=== PATIENT | female | born 1960 | race Caucasian/White ===

== ENCOUNTER 2021-02-04 09:17 | Outpatient (REF) | payer OTHER, SELFPAY ==
--- NOTE | ~2021-02-04 | CT_ITS ---
EXAMINATION: CT CHEST SCREENING CLINICAL INFORMATION: Smoking history COMPARISON: Previous chest CT October 2019 TECHNIQUE: Multidetector volumetric CT imaging of the chest is performed without contrast using low dose technique. Additional 2D coronal and sagittal reformatted images and axial 3D maximum intensity projection (MIP) images are generated on the CT workstation. This CT examination was performed using dose optimization techniques as appropriate, variously including the following: *Automated exposure control *Adjustment of mA and/or kV according to patient size (this includes techniques or standardized protocols for targeted exams where dose is matched to indication/reason for exam; i.e. extremities or head) *Use of iterative reconstruction technique DLP: 90 mGy-cm FINDINGS: LUNGS: There is evidence of paraseptal emphysema. There are several new pulmonary nodules. There is a 2 x 4 mm cavitary central right upper lobe nodule axial image 88 series 5. There is a new slightly heterogeneous or semisolid right upper lobe nodule measuring 5 x 8 mm axial image 125 series 5. Part of this appears solid, 5 x 5 mm with peripheral groundglass attenuation. There is a previously identified peripheral right upper lobe nodule axial image 173 series 19 October 2019 exam is no longer seen. Otherwise calcified and noncalcified pulmonary nodules are stable. There is scarring or subsegmental atelectasis in the right middle lobe, lingula and bilateral lower lobes, right greater than left that is unchanged. There is no endobronchial or endotracheal lesion. MEDIASTINUM: There is evidence of atherosclerotic disease. There is mild aortic valve calcification. The thoracic aorta is normal in caliber. There is an esophageal hernia. The mediastinum is otherwise normal. PLEURA: There is no pleural effusion. No pleural mass or thickening. AXILLA: No lymphadenopathy. UPPER ABDOMEN: Unremarkable OSSEOUS STRUCTURES: Unremarkable. CT/CT lung screening IMPRESSION: Emphysema. 2 new right upper lobe nodules, largest measuring 5 x 7 mm. There is a previously identified right upper lobe nodule that is no longer identified. Stable bibasilar atelectasis or scarring. Atherosclerotic disease. Esophageal hernia. ASSESSMENT: Lung-RADS category 3: Probably Benign RECOMMENDATION: Six-month low-dose chest CT follow-up recommended.
== END 2021-02-04 09:18 | disposition home or self-care (01) ==
LOC: HO.CT 09:17
PROVIDERS: PCP Family Medicine; Visit Provider Physician Assistant Medical
DX: Z12.2 Encounter for screening for malignant neoplasm of respiratory organs (principal); Z87.891 Personal history of nicotine dependence
CPT/HCPCS: 71271

== ENCOUNTER 2021-02-09 08:03 | Outpatient (REF) | payer OTHER, SELFPAY ==
[2021-02-09 10:03] LABS: MANUAL DIFF FLAG NO
[2021-02-09 10:07] LABS: Basophils Percent Auto 0.5 % (0-2); Eosinophils Absolute Auto 0.3 X10*3/uL (0.0-0.4); Eosinophils Percent Auto 3.5 % (0-4); Hematocrit 41.2 % (37-47); Hemoglobin 12.8 g/dl (12.0-16.0); Imm Gran Abs Auto 0.04 X10*3/uL (0.00-0.03); Imm Gran Pct Auto 0.5 % (0.0-0.4); Lymphocytes Absolute Auto 2.3 X10*3/uL (1.2-4.9); Lymphocytes Percent Auto 25.7 % (20-40); Mean Corpuscular HGB Conc 31.1 g/dl (31.0-35.0); Mean Corpuscular Hemoglobin 28.2 pg (27.0-33.0); Mean Corpuscular Volume 90.7 fL (80-98); Mean Platelet Volume 10.5 fL (9.4-12.3); Monocytes Absolute Auto 0.7 X10*3/uL (0.1-1.2); Monocytes Percent Auto 8.4 % (2-11); Neutrophils Absolute Auto 5.4 X10*3/uL (2.0-8.3); Neutrophils Percent Auto 61.4 % (45-73); Platelet Count 236 X10*3/uL (160-400); Red Blood Count 4.54 X10*6/uL (4.20-5.50); Red Cell Distribution Width 14.1 % (11.0-16.0); White Blood Count 8.8 X10*3/uL (4.8-10.8)
[2021-02-09 10:36] LABS: Alanine Aminotransferase 27 U/L (0-31); Albumin Level 3.9 g/dL (3.5-5.0); Alkaline Phosphatase 90 U/L (39-117); Anion Gap 14 (12-20); Aspartate Amino Transferase 21 U/L (5-31); Bilirubin Total 0.4 mg/dL (0.0-1.0); Blood Urea Nitrogen 12 mg/dL (9-16); Calcium 9.5 mg/dL (8.4-10.2); Carbon Dioxide 27 mmol/L (22-29); Chloride 104 mmol/L (96-108); Estimated Glomerular Filt Rate > 60; Glucose Fasting 103 mg/dL (60-99); Potassium 4.6 mmol/L (3.3-5.1); Sodium 140 mmol/L (135-145); Total Protein 6.8 g/dL (6.5-8.0)
[2021-02-09 11:05] LABS: Free T4 (Free Thyroxine) 0.96 ng/dL (0.71-1.85); Thyroid Stimulating Hormone 2.24 uIU/mL (0.32-4.0)
== END 2021-02-09 08:04 | disposition home or self-care (01) ==
LOC: HO.10HDL 08:03
PROVIDERS: Absent Provider Hospitalist; Visit Provider Family Medicine
DX: R06.02 Shortness of breath (principal); R00.0 Tachycardia, unspecified; R19.7 Diarrhea, unspecified; I10 Essential (primary) hypertension
CPT/HCPCS: 36415; 80053; 82378; 84439; 84443; 85025

== ENCOUNTER → 2021-02-17 13:49 | Outpatient (BNVA) | payer OTHER, SELFPAY | PROVIDERS: PCP Family Medicine; Visit Provider Hospitalist | DX: J41.8 Mixed simple and mucopurulent chronic bronchitis (principal); J96.11 Chronic respiratory failure with hypoxia; R91.8 Other nonspecific abnormal finding of lung field | CPT/HCPCS: 99212 ==

== ENCOUNTER 2021-03-15 08:38 | Outpatient (REF) | payer OTHER, SELFPAY ==
--- NOTE | 2021-03-15 13:09 | PFT_ITS ---
FLOWS: FEV1 of 49% of predicted at 1.19 L. FVC 73% of predicted at 2.29 L. FEV1 to FVC ratio of 0.52. No bronchodilator response. LUNG VOLUMES: Total lung capacity 103% of predicted at 5.05 L. Residual volume 141% of predicted at 2.33 L. Slow vital capacity 76% of predicted at 2.22 L. Expiratory reserve volume 45% of predicted at 0.35 L. Diffusion capacity is moderately decreased. In comparison to pulmonary function test from August of 2019, FEV1, FVC, and diffusion capacity have been without significant changes; total lung capacity has increased by 0.98 L; residual volume has increased by 1.07 L. IMPRESSION: Severe obstructive ventilatory defect with no bronchodilator response. Increased residual volume suggests air trapping. Decreased expiratory reserve volume suggests extrathoracic restriction likely secondary to abdominal obesity. Decreased diffusion capacity suggests emphysema. MD ABIGAIL Ross/MODL / [id number]
== END 2021-03-15 08:39 | disposition home or self-care (01) ==
LOC: HO.RESP 08:38
PROVIDERS: PCP Family Medicine; Visit Provider Hospitalist
DX: J44.9 Chronic obstructive pulmonary disease, unspecified (principal)
CPT/HCPCS: 94060; 94727; 94729

== ENCOUNTER → 2021-04-04 08:55 | Outpatient (BNVA) | payer OTHER, SELFPAY | PROVIDERS: PCP Family Medicine; Visit Provider Hospitalist | DX: R91.8 Other nonspecific abnormal finding of lung field (principal); J96.11 Chronic respiratory failure with hypoxia; J41.8 Mixed simple and mucopurulent chronic bronchitis; M79.89 Other specified soft tissue disorders | CPT/HCPCS: 99212 ==

== ENCOUNTER 2021-04-28 11:31 | Outpatient (REF) | payer OTHER, SELFPAY ==
[2021-04-28 13:36] LABS: Basophils Percent Auto 0.3 % (0-2); Eosinophils Absolute Auto 0.3 X10*3/uL (0.0-0.4); Eosinophils Percent Auto 2.5 % (0-4); Hematocrit 42.8 % (37-47); Hemoglobin 13.6 g/dl (12.0-16.0); Imm Gran Abs Auto 0.06 X10*3/uL (0.00-0.03); Imm Gran Pct Auto 0.6 % (0.0-0.4); Lymphocytes Absolute Auto 2.5 X10*3/uL (1.2-4.9); Lymphocytes Percent Auto 24.5 % (20-40); MANUAL DIFF FLAG NO; Mean Corpuscular HGB Conc 31.8 g/dl (31.0-35.0); Mean Corpuscular Volume 88.2 fL (80-98); Monocytes Absolute Auto 0.7 X10*3/uL (0.1-1.2); Monocytes Percent Auto 7.2 % (2-11); Neutrophils Absolute Auto 6.6 X10*3/uL (2.0-8.3); Neutrophils Percent Auto 64.9 % (45-73); Platelet Count 277 X10*3/uL (160-400); Red Blood Count 4.85 X10*6/uL (4.20-5.50); Red Cell Distribution Width 15.9 % (11.0-16.0); White Blood Count 10.2 X10*3/uL (4.8-10.8)
[2021-04-28 13:57] LABS: Anion Gap 13 (12-20); Blood Urea Nitrogen 8 mg/dL (9-16); Calcium 9.6 mg/dL (8.4-10.2); Carbon Dioxide 27 mmol/L (22-29); Chloride 105 mmol/L (96-108); Estimated Glomerular Filt Rate > 60; Glucose Random 80 mg/dL (60-115); Potassium 4.1 mmol/L (3.3-5.1); Sodium 141 mmol/L (135-145)
[2021-04-28 14:01] LABS: B Type Natriuretic Peptide < 10 pg/mL (<100)
[2021-04-30 15:21] LABS: Gliadin Deamidated IgA Ab 6 Units; Gliadin Deamidated IgG Ab 2 Units
[2021-05-02 12:21] LABS: Transglutaminase IgA 1 U/mL
== END 2021-04-28 11:32 | disposition home or self-care (01) ==
LOC: HO.10HDL 11:31
PROVIDERS: Hospitalist; Visit Provider Internal Medicine
DX: J41.8 Mixed simple and mucopurulent chronic bronchitis (principal); J96.11 Chronic respiratory failure with hypoxia; R19.4 Change in bowel habit; R19.7 Diarrhea, unspecified
CPT/HCPCS: 36415; 80048; 83516; 83880; 85025

== ENCOUNTER → 2021-05-10 10:44 | Outpatient (BNVA) | payer OTHER, SELFPAY | PROVIDERS: PCP Family Medicine; Visit Provider Surgery Vascular Surgery ==

== ENCOUNTER → 2022-01-06 12:47 | Outpatient (BNVA) | payer OTHER, SELFPAY | PROVIDERS: PCP Family Medicine; Visit Provider Hospitalist | DX: J41.8 Mixed simple and mucopurulent chronic bronchitis (principal); J96.11 Chronic respiratory failure with hypoxia; R91.8 Other nonspecific abnormal finding of lung field; M79.89 Other specified soft tissue disorders | CPT/HCPCS: 99212 ==

== ENCOUNTER 2022-03-22 07:33 | Outpatient (REF) | payer OTHER, SELFPAY ==
[2022-03-22 08:02] LABS: MANUAL DIFF FLAG NO
[2022-03-22 08:35] LABS: Basophils Percent Auto 0.3 % (0-2); Eosinophils Absolute Auto 0.3 X10*3/uL (0.0-0.4); Eosinophils Percent Auto 3.6 % (0-4); Hematocrit 40.4 % (37.0-47.0); Hemoglobin 12.5 g/dl (12.0-16.0); Imm Gran Abs Auto 0.04 X10*3/uL (0.00-0.03); Imm Gran Pct Auto 0.5 % (0.0-0.4); Lymphocytes Percent Auto 22.8 % (20-40); Mean Corpuscular HGB Conc 30.9 g/dl (31.0-35.0); Mean Corpuscular Hemoglobin 26.3 pg (27.0-33.0); Mean Corpuscular Volume 84.9 fL (80.0-98.0); Mean Platelet Volume 10.4 fL (9.4-12.3); Monocytes Absolute Auto 0.8 X10*3/uL (0.1-1.2); Monocytes Percent Auto 9.4 % (2-11); Neutrophils Absolute Auto 5.5 x10*3/uL (2.0-8.3); Neutrophils Percent Auto 63.4 % (45-73); Platelet Count 273 X10*3/uL (160-400); Red Blood Count 4.76 X10*6/uL (4.20-5.50); Red Cell Distribution Width 15.9 % (11.0-16.0); White Blood Count 8.6 X10*3/uL (4.8-10.8)
[2022-03-22 08:53] LABS: Alanine Aminotransferase 17 U/L (0-31); Anion Gap 14 (12-20); Aspartate Amino Transferase 15 U/L (5-31); Blood Urea Nitrogen 11 mg/dL (9-16); Calcium 9.4 mg/dL (8.4-10.2); Carbon Dioxide 29 mmol/L (22-29); Chloride 102 mmol/L (96-108); Estimated Glomerular Filt Rate > 60; Glucose Random 102 mg/dL (60-115); Potassium 4.2 mmol/L (3.3-5.1); Sodium 141 mmol/L (135-145)
[2022-03-22 09:22] LABS: Erythrocyte Sedimentation Rate 23 MM/HR (0-20)
[2022-03-23 00:54] LABS: Theophylline 8.9 MG/L ((10-20))
== END 2022-03-22 07:34 | disposition home or self-care (01) ==
LOC: HO.LAB 07:33
PROVIDERS: Hospitalist; PCP Family Medicine; Visit Provider Family Medicine
DX: J41.8 Mixed simple and mucopurulent chronic bronchitis (principal); R06.02 Shortness of breath; R60.0 Localized edema; R53.83 Other fatigue
CPT/HCPCS: 36415; 80048; 80198; 84450; 84460; 85025; 85652

== ENCOUNTER → 2022-04-03 12:49 | Outpatient (BNVA) | payer OTHER, SELFPAY | PROVIDERS: PCP Internal Medicine; Visit Provider Hospitalist | DX: Z01.811 Encounter for preprocedural respiratory examination (principal); R91.8 Other nonspecific abnormal finding of lung field; J96.11 Chronic respiratory failure with hypoxia; J41.8 Mixed simple and mucopurulent chronic bronchitis; M79.89 Other specified soft tissue disorders; Z79.899 Other long term (current) drug therapy | CPT/HCPCS: 99212 ==

== ENCOUNTER 2022-04-26 10:20 | Outpatient (REF) | payer OTHER, SELFPAY ==
--- NOTE | ~2022-04-26 | CT_ITS ---
EXAMINATION: CT CHEST WITHOUT CONTRAST CLINICAL INFORMATION: Follow-up pulmonary nodules. COMPARISON: None TECHNIQUE: Multidetector volumetric CT imaging of the chest was done. Axial MIP volume rendering provided. Sagittal and coronal reformatted images were obtained. This CT examination was performed using dose optimization techniques as appropriate, variously including the following: *Automated exposure control. *Adjustment of mA and/or kV according to patient size (this includes techniques or standardized protocols for targeted exams where dose is matched to indication/reason for exam; i.e. extremities or head). *Use of iterative reconstruction technique. DLP: 271 mGy-cm FINDINGS: DEPILATORY PAINTER: Well inflated lungs. LUNGS: There is some centrilobular emphysema in upper lobes and paraseptal emphysema in the rest of the lungs. There are calcified pulmonary nodules, the largest in the right upper lobe measuring 2 mm, axial image 73/9, 3 mm nodule right upper lobe, axial image 110/9, few scattered 3 mm pulmonary nodules in the left upper lobe, axial image 179/9, 2 mm nodule in the left upper lobe, axial image 189/9, 191/9. Large calcified 5 mm nodule in the right lower lobe, axial image 262/9. A 3 mm right upper lobe lesion appears like cavity image 76/9 is stable. No new nodules are seen. There is no acute consolidation. Atelectatic changes right lower lobe, lingula and left lower lobe. There is mild thickening of right major fissure. MEDIASTINUM: The thyroid lobes are symmetric and normal. The central trachea and the bronchi widely patent. Heart size and the great vessels are normal caliber. There is a small to moderate-sized hiatal hernia. No abnormal-sized mediastinal or hilar lymph nodes seen. PLEURA: There is no pleural effusion. No pleural mass or thickening. AXILLA: Small shotty lymph nodes in bilateral axilla. UPPER ABDOMEN: Visualized liver, spleen, pancreas and bilateral adrenal glands are unremarkable. OSSEOUS STRUCTURES: No lytic or sclerotic process. CT/CT chest wo con IMPRESSION: Stable pulmonary nodules including 3 mm cavitary lesion in the right upper lobe previously measured 5 x 7 mm. ASSESSMENT: Lung RADS: Category 2: Benign. RECOMMENDATION: Low-dose annual CT chest. Fleischner guidelines were followed.
== END 2022-04-26 10:21 | disposition home or self-care (01) ==
LOC: HO.CT 10:20
PROVIDERS: PCP Family Medicine; Visit Provider Hospitalist
DX: R91.8 Other nonspecific abnormal finding of lung field (principal)
CPT/HCPCS: 71250

== ENCOUNTER 2023-05-17 14:00 | Outpatient (AMB) | payer MEDICARE, MEDICAID, SELFPAY ==
[2023-05-17 14:06] VITALS: PULSE 92; O2SAT 98; BMI 46.9
--- NOTE | 2023-05-17 14:06 | MHC.OFFVIS ---
Intake Vital Signs 05/17/23 14:06 Height 5 ft 3 in Weight 265 lb BMI 46.9 Pulse 92 Pulse Source Pulse Oximeter Pulse Oximetry (%) 98 Oxygen Delivery Method Room Air Comment 2 Liters Oxygen([employer]) Intake Visit Reasons: Shortness of breath follow-up Apartment Rental Agent Required: No Allergies Seasonal Allergies Allergy (Verified 05/17/23 14:10) Unknown HPI HPI Comments History of Present Illness Details The patient is a 63 y/o woman with a history of COPD and hiatal hernia. She developing worsening dyspnea on exertion. She attributes similar symptoms to her increased weight gain. She did follow-up with bariatric surgery. It was recommended that she could have bariatric surgery in also had her hernia repair which should be very helpful in decreasing her respiratory symptoms both from the reflux standpoint also from the morbid obesity standpoint. The patient does use oxygen at nighttime. However she does not use it all the time. The patient therefore went for 6 minutes walk test and she did desaturate down to 86% therefore qualify for oxygen with activity at 2 L. she is already on maximum respiratory therapy. The patient understands that based on her significant obstruction on PFTs in her evidence of hypoxia she has a high risk for perioperative pulmonary complications. I advised her to consider holding off on surgery at this time as her risk is high. Finding alternative to losing weight at this point will be the best option at this time. The patient is agreeable to doing pulmonary rehabilitation and also starting oxygen supplementation with activity. At this point my recommendation is for her to hold off on bariatric surgery. 04/03/2022 the patient is here for pulmonary follow-up visit. She is feeling better finally. She switched over to Anoro it seems to be doing a lot better on the Anoro. I will send her prescription to the pharmacy. She has also lost 12 lb which is excellent. She does try to exercise but is very difficult for her. She is also having hard time with the idea of leaving the house because of the COVID-19 cases. I did provide information about online pulmonary rehabilitation. She will look into it. In the meantime she continues to use the oxygen as needed fascial if her oxygen drops. But lately she has been doing better. She does have issues with anemia. She is going to have a colonoscopy soon. From a pulmonary standpoint she is doing a lot better and the patient is able to proceed with anesthesia and also her colonoscopy at this time. I did review her CT scan of the chest with her that she had back in January 2021 to the lung cancer screening program here at [place]. She did have a new 5 x 7 mm pulmonary nodule. Unfortunately because of the pandemic and the fact that she could not have lay down. Since the patient is doing better she should be able to have her CT scan now. I will go ahead and order CT scan he is something of the size of the nodule. 05/17/2023 the patient is here for pulmonary follow-up visit. The patient is here for follow-up visit. Overall the patient has been doing well. She does have increased dyspnea on exertion but overall mild in severity. She does use her oxygen with good effect. She does get the oxygen through [facility] [place]. She has a hard time with the oxygen tanks are not very long lasting. She does feel her own tanks. The patient does not benefit from a current 7 device trial and starting her on a conserving device in order to have better portability outside of the home. In addition to that she continues with the current respiratory therapy. She had been on theophylline. She has not checked her levels. She had a good response Daliresp before that. However she was having GI symptoms of therefore she decided to stop it. Recently she was found out to have issues with lactose and her GI issues are better. She rather go back on Daliresp this was more helpful for her. Will go ahead and switch her again to Daliresp and she can continue with current respiratory regimen. She has not had a colonoscopy as of yet. The patient is also following closely with lung cancer screening program. She has not had a repeat CT scan as of yet either. She states that she recently changed phone so therefore may be an issue with his phone I did reach out to the lung cancer screening program to make sure that they can reach out to her and schedule her yearly CT scan specially since she had a new nodule noted back in January 2021. [facility] Medical History (Updated 04/03/22 @ 13:35 by Jason Cm MD) Chest discomfort Chronic respiratory failure COPD (chronic obstructive pulmonary disease) Limb swelling Pulmonary nodules Social History (Updated 04/04/21 @ 09:04 by FAITH Loyd) Patient Tobacco Use Status: Former Tobacco user Tobacco use type: Cigarette Years Smoked: 45 years Review of Systems Const Denies night sweats ENT Denies change in voice, Denies lip swelling, Denies mouth pain, Reports nasal congestion, Reports nasal discharge and Denies tongue swelling Card Denies chest pain and Reports dyspnea on exertion Resp Reports cough and Reports dyspnea on exertion GI Denies abdominal pain Musc Denies no additional complaints Neuro Denies Neuro-related abnormal movements Psych Denies no additional complaints Dago/Lymph Denies easy bleeding and Denies lymphadenopathy Aller/Immun Denies lip swelling and Denies tongue swelling Physical Exam Vital Signs: Last Vital Signs Pulse 92 05/17/23 14:06 Pulse Ox 98 05/17/23 14:06 Oxygen Delivery Method Room Air 05/17/23 14:06 BMI result Body Mass Index 46.9 Const General: alert Neck Neck: Yes normal visual inspection, Yes full ROM and Yes no lymphadenopathy Chest Chest palpation & inspection: normal inspection of the chest Resp Auscultation: diminished lung sounds Cardio Rate: regular rate Rhythm: regular rhythm Heart sounds: S1 normal heart sound present and S2 normal heart sound present GI Palpation (GI): Soft to palpation and nontender Auscultation: normal bowel sounds Skin General skin exam: rashes and/or lesions noted Immunizations pneumoc 20-ariela conj-dip cr(PF) Performing Provider: Jason Cm MD Administered by: Jeanna Wiggins LPN on 05/17/23 14:47 Dose Route Admin Location Lot Number Expiration Date N[employer] Medical Office Technologist 0.5 mL IM Left Deltoid [id number] 07/15/24 [id number] [employer] VIS Given Date VIS Provided VIS Publication Date 05/17/23 Single Vaccine 21 Eligibility Eligibility Date Funding Source Not [facility] Eligible 05/17/23 Private Assessment & Plan Assessment & Plan (1) Pulmonary nodules: Code(s): R91.8 - Other nonspecific abnormal finding of lung field (2) Chronic respiratory failure: Code(s): J96.10 - Chronic respiratory failure, unspecified whether with hypoxia or hypercapnia Qualifiers: Respiratory failure complication: hypoxia Qualified Code(s): J96.11 - Chronic respiratory failure with hypoxia (3) COPD (chronic obstructive pulmonary disease): Code(s): J44.9 - Chronic obstructive pulmonary disease, unspecified Qualifiers: COPD type: chronic bronchitis Chronic bronchitis type: mixed simple and mucopurulent Qualified Code(s): J41.8 - Mixed simple and mucopurulent chronic bronchitis (4) Limb swelling: Code(s): M79.89 - Other specified soft tissue disorders (5) Pre-op chest exam: Code(s): Z01.811 - Encounter for preprocedural respiratory examination Plan stop Theophylline start Daliresp 250mcg continue Anoro BOOKER as needed CT chest summer 2022 LDCT pro The patient is doing well from a respiratory status. She is able to consent for both anesthesia and colonoscopy at this time. PFTs in 6 months labs if she goes back on Theophylline F/U 3-4 months Orders: Orders Complete Blood Count Auto Diff 05/17/23 J96.10 - Chronic respiratory failure, unspecified whether with hypoxia or hypercapnia Basic Metabolic Panel 05/17/23 J96.10 - Chronic respiratory failure, unspecified whether with hypoxia or hypercapnia Erythrocyte Sedimentation Rate 05/17/23 J96.10 - Chronic respiratory failure, unspecified whether with hypoxia or hypercapnia Theophylline 05/17/23 J96.10 - Chronic respiratory failure, unspecified whether with hypoxia or hypercapnia PFT pulmonary function test 6 Months J96.10 - Chronic respiratory failure, unspecified whether with hypoxia or hypercapnia Pneumococcal 20 Immunization 05/17/23 J44.9 - Chronic obstructive pulmonary disease, unspecified Medications: New roflumilast (Daliresp) 250 mcg PO DAILY 30 tabs 11RF 30 days J44.9 - Chronic obstructive pulmonary disease, unspecified Discontinued theophylline ER Discontinued Reason: None 300 mg PO Q12H 60 tabs 0RF Coding Level of Care Code Est Pt Level 4 (16674) Diagnoses Pulmonary nodules R91.8 Chronic respiratory failure J96.11 Respiratory failure complication: hypoxia COPD (chronic obstructive pulmonary disease) J41.8 COPD type: chronic bronchitis Chronic bronchitis type: mixed simple and mucopurulent Limb swelling M79.89 Pre-op chest exam Z01.811 Time Spent (min) 19
== END 2023-05-17 14:38 | disposition home or self-care (01) ==
PROVIDERS: PCP Internal Medicine; Visit Provider Hospitalist
DX: R91.8 Other nonspecific abnormal finding of lung field (principal); J96.11 Chronic respiratory failure with hypoxia; J41.8 Mixed simple and mucopurulent chronic bronchitis; M79.89 Other specified soft tissue disorders; Z01.811 Encounter for preprocedural respiratory examination
CPT/HCPCS: 99214

== ENCOUNTER → 2023-05-17 14:00 | Outpatient (BNVA) | payer MEDICARE, MEDICAID, SELFPAY | PROVIDERS: PCP Internal Medicine; Visit Provider Hospitalist | DX: Z23 Encounter for immunization (principal); Z01.811 Encounter for preprocedural respiratory examination; R91.8 Other nonspecific abnormal finding of lung field; J96.11 Chronic respiratory failure with hypoxia; J41.8 Mixed simple and mucopurulent chronic bronchitis; M79.89 Other specified soft tissue disorders | CPT/HCPCS: 90471; 90677; 99212 ==

== ENCOUNTER 2024-07-29 10:19 | Outpatient (AMB) | payer MEDICARE, MEDICAID, SELFPAY ==
[2024-07-29 10:23] VITALS: BP 134/68; PULSE 63; O2SAT 98; BMI 47.8
--- NOTE | 2024-07-29 10:23 | A.OFFVIS_ITS ---
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 She developing worsening dyspnea on exertion. She attributes similar symptoms to her increased weight gain. She did follow-up with bariatric surgery. It was recommended that she could have bariatric surgery in also had her hernia repair which should be very helpful in decreasing her respiratory symptoms both from the reflux standpoint also from the morbid obesity standpoint. The patient does use oxygen at nighttime. However she does not use it all the time. The patient therefore went for 6 minutes walk test and she did desaturate down to 86% therefore qualify for oxygen with activity at 2 L. she is already on maximum respiratory therapy. The patient understands that based on her significant obstruction on PFTs in her evidence of hypoxia she has a high risk for perioperative pulmonary complications. I advised her to consider holding off on surgery at this time as her risk is high. Finding alternative to losing weight at this point will be the best option at this time. The patient is agreeable to doing pulmonary rehabilitation and also starting oxygen supplementation with activity. At this point my recommendation is for her to hold off on bariatric surgery. 04/03/2022 the patient is here for pulmonary follow-up visit. She is feeling better finally. She switched over to Anoro it seems to be doing a lot better on the Anoro. I will send her prescription to the pharmacy. She has also lost 12 lb which is excellent. She does try to exercise but is very difficult for her. She is also having hard time with the idea of leaving the house because of the COVID-19 cases. I did provide information about online pulmonary rehabilitat ion. She will look into it. In the meantime she continues to use the oxygen as needed fascial if her oxygen drops. But lately she has been doing better. She does have issues with anemia. She is going to have a colonoscopy soon. From a pulmonary standpoint she is doing a lot better and the patient is able to proceed with anesthesia and also her colonoscopy at this time. I did review her CT scan of the chest with her that she had back in January 2021 to the lung cancer screening program here at [place]. She did have a new 5 x 7 mm pulmonary nodule. Unfortunately because of the pandemic and the fact that she could not have lay down. Since the patient is doing better she should be able to have her CT scan now. I will go ahead and order CT scan he is something of the size of the nodule. 05/17/2023 the patient is here for pulmonary follow-up visit. The patient is here for follow-up visit. Overall the patient has been doing well. She does have increased dyspnea on exertion but overall mild in severity. She does use her oxygen with good effect. She does get the oxygen through [facility]. She has a hard time with the oxygen tanks are not very long lasting. She does feel her own tanks. The patient does not benefit from a current 7 device trial and starting her on a conserving device in order to have better portability outside of the home. In addition to that she continues with the current respiratory therapy. She had been on theophylline. She has not checked her levels. She had a good response Daliresp before that. However she was having GI symptoms of therefore she decided to stop it. Recently she was found out to have issues with lactose and her GI issues are better. She rather go back on Daliresp this was more helpful for her. Will go ahead and switch her again to Daliresp and she can continue with current respiratory regimen. She has not had a colonoscopy as of yet. The patient is also following closely with lung cancer screening program. She has not had a repeat CT scan as of yet either. She states that she recently changed phone so therefore may be an issue with his phone I did reach out to the lung cancer screening program to make sure that they can reach out to her and schedule her yearly CT scan specially since she had a new nodule noted back in January 2021. 07/29/2024 the patient is here for a pulmonary follow-up visit. Overall she is doing okay. She does complaint of shortness of breath specially at nighttime when she lays flat. [id number] severity. She does have lower extremity edema she does take diuretics. She is not always following closely the low- sodium diet. She does cook her meals. She does have significant lower extremity edema. She will go ahead and increase her diuretic for the next 3 days. She understands that is likely her volume overload does causing it to have increasing shortness of breath. The patient also was participating in the lung cancer screening program. The last CT scan was back in 2021. Then she stopped going for appointments because of the COVID-19 epidemic. At this point she feels more comfortable she will go ahead and restart the program at this time. Will reach out to the lung cancer screening program for her to be rescheduled. In regards to medications she stopped the Daliresp. In addition to that she is having issues with anemia. She had to get a blood transfusion. This is also likely contributing to her dyspnea symptoms. She is going to follow up closely with her providers. She was supposed to undergo a capsule endoscopy but she needs waiting to hear from scheduling. [facility] Medical History (Updated 03/14/24 @ 09:32 by Rosemarie Mckeon PA-C) Personal history of nicotine dependence Chest discomfort Limb swelling Pulmonary nodules Chronic respiratory failure COPD (chronic obstructive pulmonary disease) Social History (Updated 04/04/21 @ 09:04 by FAITH Loyd) Patient Tobacco Use Status: Former Tobacco user Tobacco use type: Cigarette Years Smoked: 45 years Review of Systems Const Denies night sweats ENT Denies change in voice, Denies lip swelling, Denies mouth pain, Reports nasal congestion, Reports nasal discharge and Denies tongue swelling Card Denies chest pain and Reports dyspnea on exertion Resp Reports cough and Reports dyspnea on exertion GI Denies abdominal pain Musc Denies no additional complaints Neuro Denies Neuro-related abnormal movements Psych Denies no additional complaints Dago/Lymph Denies easy bleeding and Denies lymphadenopathy Aller/Immun Denies lip swelling and Denies tongue swelling Physical Exam Vital Signs: Last Vital Signs Pulse 63 07/29/24 10:23 BP 134/68 07/29/24 10:23 Pulse Ox 98 07/29/24 10:23 Oxygen Delivery Method Room Air 07/29/24 10:23 BMI result Body Mass Index 47.8 Const General: alert Neck Neck: Yes normal visual inspection, Yes full ROM and Yes no lymphadenopathy Chest Chest palpation & inspection: normal inspection of the chest Resp Auscultation: diminished lung sounds Cardio Rate: regular rate Rhythm: regular rhythm Heart sounds: S1 normal heart sound present and S2 normal heart sound present GI Palpation (GI): Soft to palpation and nontender Auscultation: normal bowel sounds Skin General skin exam: rashes and/or lesions noted Assessment & Plan Assessment & Plan (1) Pulmonary nodules: Code(s): R91.8 - Other nonspecific abnormal finding of lung field Category: Medical (2) Chronic respiratory failure: Code(s): J96.10 - Chronic respiratory failure, unspecified whether with hypoxia or hypercapnia Category: Medical Qualifiers: Respiratory failure complication: hypoxia Qualified Code(s): J96.11 - Chronic respiratory failure with hypoxia (3) COPD (chronic obstructive pulmonary disease): Code(s): J44.9 - Chronic obstructive pulmonary disease, unspecified Category: Medical Qualifiers: COPD type: chronic bronchitis Chronic bronchitis type: mixed simple and mucopurulent Qualified Code(s): J41.8 - Mixed simple and mucopurulent chronic bronchitis (4) Limb swelling: Code(s): M79.89 - Other specified soft tissue disorders Category: Medical Plan stopped Daliresp continue Anoro BOOKER as needed additional lasix 20mg (40mg) x 3 days continue oxygen 2L with activity and sleep CT chest LDCT F/U 3-4 months Coding Level of Care Code Est Pt Level 4 (10755) Complex EM visit Add On G2211 Diagnoses Pulmonary nodules R91.8 Chronic respiratory failure with hypoxia J96.11 Respiratory failure complication: hypoxia Mixed simple and mucopurulent chronic bronchitis J41.8 COPD type: chronic bronchitis Chronic bronchitis type: mixed simple and mucopurulent Limb swelling M79.89 Time Spent (min) 17
== END 2024-07-29 10:42 | disposition home or self-care (01) ==
PROVIDERS: PCP Internal Medicine; Visit Provider Hospitalist
DX: R91.8 Other nonspecific abnormal finding of lung field (principal); J96.11 Chronic respiratory failure with hypoxia; J41.8 Mixed simple and mucopurulent chronic bronchitis; M79.89 Other specified soft tissue disorders
CPT/HCPCS: 99214; G2211

== ENCOUNTER → 2024-07-29 10:19 | Outpatient (BNVA) | payer MEDICARE, MEDICAID, SELFPAY | PROVIDERS: PCP Internal Medicine; Visit Provider Hospitalist | DX: J96.11 Chronic respiratory failure with hypoxia (principal); J41.8 Mixed simple and mucopurulent chronic bronchitis; R91.8 Other nonspecific abnormal finding of lung field; M79.89 Other specified soft tissue disorders | CPT/HCPCS: 99212 ==

== ENCOUNTER 2025-01-30 10:36 | Outpatient (AMB) | payer MEDICARE, MEDICAID, SELFPAY ==
[2025-01-30 10:42] VITALS: BP 132/88; PULSE 72; O2SAT 97; BMI 49.8
--- NOTE | 2025-01-30 10:42 | A.OFFVIS_ITS ---
Vital Signs 01/30/25 10:42 Height 5 ft 3 in Weight 281 lb 1.43 oz BMI 49.8 BP 132/88 Blood Pressure Location Rt brachial Position Sitting Pulse 72 Pulse Source Pulse Oximeter Pulse Oximetry (%) 97 Oxygen Delivery Method Nasal Cannula Oxygen Flow Rate 2 Intake Visit Reasons: COPD Allergies lactose Allergy (Mild, Verified 01/30/25 10:47) Diarrhea latex Allergy (Mild, Verified 01/30/25 10:47) Rash Seasonal Allergies Allergy (Verified 01/30/25 10:46) Unknown HPI Comments Details: The patient is a 64 y/o woman with a history of COPD and hiatal hernia. She developing worsening dyspnea on exertion. She attributes similar symptoms to her increased weight gain. She did follow-up with bariatric surgery. It was recommended that she could have bariatric surgery in also had her hernia repair which should be very helpful in decreasing her respiratory symptoms both from the reflux standpoint also from the morbid obesity standpoint. The patient does use oxygen at nighttime. However she does not use it all the time. The patient therefore went for 6 minutes walk test and she did desaturate down to 86% therefore qualify for oxygen with activity at 2 L. she is already on maximum respiratory therapy. The patient understands that based on her significant obstruction on PFTs in her evidence of hypoxia she has a high risk for perioperative pulmonary complications. I advised her to consider holding off on surgery at this time as her risk is high. Finding alternative to losing weight at this point will be the best option at this time. The patient is agreeable to doing pulmonary rehabilitation and also starting oxygen supplementation with activity. At this point my recommendation is for her to hold off on bariatric surgery. 04/03/2022 the patient is here for pulmonary follow-up visit. She is feeling better finally. She switched over to Anoro it seems to be doing a lot better on the Anoro. I will send her prescription to the pharmacy. She has also lost 12 lb which is excellent. She does try to exercise but is very difficult for her. She is also having hard time with the idea of leaving the house because of the COVID-19 cases. I did provide information about online pulmonary rehabilitation. She will look into it. In the meantime she continues to use the oxygen as needed fascial if her oxygen drops. But lately she has been doing better. She does have issues with anemia. She is going to have a colonoscopy soon. From a pulmonary standpoint she is doing a lot better and the patient is able to proceed with anesthesia and also her colonoscopy at this time. I did review her CT scan of the chest with her that she had back in January 2021 to the lung cancer screening program here at [facility]. She did have a new 5 x 7 mm pulmonary nodule. Unfortunately because of the pandemic and the fact that she could not have lay down. Since the patient is doing better she should be able to have her CT scan now. I will go ahead and order CT scan he is something of the size of the nodule. 05/17/2023 the patient is here for pulmonary follow-up visit. The patient is here for follow-up visit. Overall the patient has been doing well. She does have increased dyspnea on exertion but overall mild in severity. She does use her oxygen with good effect. She does get the oxygen through [facility]. She has a hard time with the oxygen tanks are not very long lasting. She does feel her own tanks. The patient does not benefit from a current [address] arting her on a conserving device in order to have better portability outside of the home. In addition to that she continues with the current respiratory therapy. She had been on theophylline. She has not checked her levels. She had a good response Daliresp before that. However she was having GI symptoms of therefore she decided to stop it. Recently she was found out to have issues with lactose and her GI issues are better. She rather go back on Daliresp this was more helpful for her. Will go ahead and switch her again to Daliresp and she can continue with current respiratory regimen. She has not had a colonoscopy as of yet. The patient is also following closely with lung cancer screening program. She has not had a repeat CT scan as of yet either. She states that she recently changed phone so therefore may be an issue with his phone I did reach out to the lung cancer screening program to make sure that they can reach out to her and schedule her yearly CT scan specially since she had a new nodule noted back in January 2021. 07/29/2024 the patient is here for a pulmonary follow-up visit. Overall she is doing okay. She does complaint of shortness of breath specially at nighttime when she lays flat. Kzup-pn-ldmchqna severity. She does have lower extremity edema she does take diuretics. She is not always following closely the low- sodium diet. She does cook her meals. She does have significant lower extremity edema. She will go ahead and increase her diuretic for the next 3 days. She understands that is likely her volume overload does causing it to have increasing shortness of breath. The patient also was participating in the lung cancer screening program. The last CT scan was back in 2021. Then she stopped going for appointments because of the COVID-19 epidemic. At this point she feels more comfortable she will go ahead and restart the program at this time. Will reach out to the lung cancer screening program for her to be rescheduled. In regards to medications she stopped the Daliresp. In addition to that she is having issues with anemia. She had to get a blood transfusion. This is also likely contributing to her dyspnea symptoms. She is going to follow up closely with her providers. She was supposed to undergo a capsule endoscopy but she needs waiting to hear from scheduling. 01/30/2025 the patient is here for a pulmonary follow-up visit. Overall the patient is doing okay. She has noticed increased lower extremity edema. Go ahead and request an echocardiogram to make sure she does not have any evidence of cor pulmonale. The patient continues on the Lasix. Will go ahead and increase the Lasix some. She also needs to continue monitoring closely her sodium intake. She also has been using the oxygen with good effect. She still gets short of breath with activity. The inhalers do help. The patient was participating in the lung cancer screening program although for some reason she fell off which I think was because she lost her insurance. Will go ahead and that are back on the program in order for her to get her yearly CAT scans. The patient will continue with current respiratory therapy use her oxygen and work ing on her volume status. She will get a call for the echocardiogram. Will follow-up in 4-6 months. [facility] Medical History (Updated 01/30/25 @ 11:08 by Rosemarie Mckeon PA-C) Personal history of nicotine dependence Chest discomfort Limb swelling Pulmonary nodules Chronic respiratory failure COPD (chronic obstructive pulmonary disease) Social History (Updated 04/04/21 @ 09:04 by FAITH Loyd) Patient Tobacco Use Status: Former Tobacco user Tobacco use type: Cigarette Years Smoked: 45 years Review of Systems Const Denies night sweats ENT Denies change in voice, Denies lip swelling, Denies mouth pain, Reports nasal congestion, Reports nasal discharge and Denies tongue swelling Card Denies chest pain and Reports dyspnea on exertion Resp Reports cough and Reports dyspnea on exertion GI Denies abdominal pain Musc Denies no additional complaints Neuro Denies Neuro-related abnormal movements Psych Denies no additional complaints Dago/Lymph Denies easy bleeding and Denies lymphadenopathy Aller/Immun Denies lip swelling and Denies tongue swelling Physical Exam Vital Signs: Last Vital Signs Pulse 72 01/30/25 10:42 BP 132/88 01/30/25 10:42 Pulse Ox 97 01/30/25 10:42 Oxygen Delivery Method Nasal Cannula 01/30/25 10:42 Oxygen Flow Rate 2 01/30/25 10:42 BMI result Body Mass Index 49.8 Const General: alert Neck Neck: Yes normal visual inspection, Yes full ROM and Yes no lymphadenopathy Chest Chest palpation & inspection: normal inspection of the chest Resp Auscultation: diminished lung sounds Cardio Rate: regular rate Rhythm: regular rhythm Heart sounds: S1 normal heart sound present and S2 normal heart sound present GI Palpation (GI): Soft to palpation and nontender Auscultation: normal bowel sounds Skin General skin exam: rashes and/or lesions noted Assessment & Plan Assessment & Plan (1) Pulmonary nodules: Code(s): R91.8 - Other nonspecific abnormal finding of lung field Category: Medical (2) Chronic respiratory failure: Code(s): J96.10 - Chronic respiratory failure, unspecified whether with hypoxia or hypercapnia Category: Medical Qualifiers: Respiratory failure complication: hypoxia Qualified Code(s): J96.11 - Chronic respiratory failure with hypoxia (3) COPD (chronic obstructive pulmonary disease): Code(s): J44.9 - Chronic obstructive pulmonary disease, unspecified Category: Medical Qualifiers: COPD type: chronic bronchitis Chronic bronchitis type: mixed simple and mucopurulent Qualified Code(s): J41.8 - Mixed simple and mucopurulent chronic bronchitis (4) Limb swelling: Code(s): M79.89 - Other specified soft tissue disorders Category: Medical Plan continue Anoro BOOKER as needed continue oxygen 2L with activity and sleep diuresis as tolerated ECHO CT chest LDCT F/U 3-4 months Orders: Orders CA echo transthoracic complete 01/30/25 I27.20 - Pulmonary hypertension, unspecified Coding Level of Care Code Est Pt Level 4 (07607) Complex EM visit Add On G2211 Diagnoses Pulmonary nodules R91.8 Chronic respiratory failure with hypoxia J96.11 Respiratory failure complication: hypoxia Mixed simple and mucopurulent chronic bronchitis J41.8 COPD type: chronic bronchitis Chronic bronchitis type: mixed simple and mucopurulent Limb swelling M79.89 Time Spent (min) 17
--- OUTSIDE RECORDS SUMMARY | 2025-01-30 11:38 | XMS_ITS | Patient Health Record ---
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 Name Role Phone Juan Carlos CHUN, Jose G Primary Care Provider Elder Blanchard [phone] Allergies Allergen (clinical drug ingredient) Drug/Non Drug Allergy documented on EMR Reaction Allergy Type Onset Date Status Latex Gloves Unknown Drug Allergy Acti ve DuoNeb Unknown Drug Allergy Active seasonal (uncoded) Unknown Allergy A ctive sun (uncoded) Unknown Allergy Active Reason For Referral No Information Medications Medication SIG (Take, Route, Frequency, Duration) Notes Start Date End Date Status Albuterol Sulfate HFA Active Toprol XL 25mg Activ e Losartan Potassium 25 MG 1/2 tablet Oral ly Once a day Active Furosemide 20 MG 1 tablet Orally Once a day for 30 day(s) Active Daliresp 250 MCG 2 tablets Orally Onc e a day for 30 day(s) Active Incruse Ellipta 62.5 MCG/INH 1 puff Inhalation Once a day Active Multivitamin Adult A ctive Iron Active Breo Ellipta Active Immunizations Vaccine Route Administration Date Status Comme nts Influenza Unknown 07/15/2020 Administered Social History Tobacco Use: Social History Observation Description Date Details (start date - stop date) Former Smoker NA - NA Tobacco Use/Smoking Question Answer Notes Patient is a former smoker How long has it been since you last smoked? 1-5 years Alcohol Screen Question Answer Notes Did you have a drink contain ing alcohol in the past year? Yes How often did you have a dri nk containing alcohol in the past year? 4 or more times a week (4 points) How many drinks did you have on a typical day when you were drinking in the past year? 1 or 2 drinks (0 point) How often did you have 6 or more drinks on one occasion in the past year? Never (0 point) Points 4 Interpretation Positive Section Notes: Smoker 1/2 ppd; no sig alcoh ol Stopped smoking in 2018; 2 g lasses of wine QD Problems Problem Type SNOMED Code ICD Code Onset Dates Problem Status W/U Status Risk Notes Problem 143121242 Encounter for screening for malignant neoplasm of colon (Z12.11) Active confirmed Problem 371511843 Change in bowel habits (R19.4) Active confirmed Problem 922247454 Hx of adenomatous colonic polyps (Z86.010) Active confirmed Problem 66874807 Diarrhea, unspecified type (R19.7) Active confirmed Plan Of Treatment Pending Test Test Name Order Date CELIAC PANEL #10 04/28/2021 Future Test Test Name Order Date COLONOSCOPY 04/28/2021 Insurance Providers Payer Name Payer Address Payer Phone Subscriber Number Group Number Insured Name Patient Relationship to Insured Coverage Start Date Coverage End Date [facility] [address] [address] [place], [place] [id number] CHERY COVARRUBIAS Self - patient is the insured [facility] [address] [place] [address] [id number] CHERY COVARRUBIAS Self - patient is the insured Medical (General) History Medical History History ICD Code GERD--told of a HH on UGI--never had an EGD HTN Denies MO,DM,CVA,renal disease LE edema Iron deficiency anemia in the past--norm al CBC in 01/2021 COPD--wears oxygen for exertion and slee p Colonoscopy mere [place] with Dr. Wilson in 2014 with removal of a polyp Surgical History Surgery Date(Month/Year) Right knee arthroscopy
--- OUTSIDE RECORDS SUMMARY | 2025-01-30 11:38 | XMS_ITS | Clinical Summary ---
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 Assembler Name Role Phone Julissa Rangel MD Primary Care Provider [phone] Surgical History Surgery Date Site/Laterality Comments KNEE SURGERY PROCEDURE: HISTORICAL KNEE SURGERY Medical History Medical History Date Comments Anemia 12/04/2016 DX:Anemia Chronic obstructive pulmonar y disease (CMS/HCC V24, CMS/HCC V28) 05/04/2017 DX:Chronic obstructive pulm onary disease (HCC) Gastroesophageal reflux disease 12/04/2016 DX:Gastroesophageal reflux disease Hiatal hernia 12/04/2016 DX:Hiatal hernia Hypercholesterolemia 12/04/2016 DX:Hypercho lesterolemia Hypertension 12/04/2016 DX:Hypertension Mononucleosis syndrome 12/04/2016 DX:Mononu cleosis syndrome Social History Tobacco Use Types Packs/Day Years Used Date Smoking Tobacco: Former Cigarettes Q uit: 07/15/2018 Smokeless Tobacco: Never Alcohol Use Standard Drinks/Week Comments Yes 0 (1 standard drink = 0.6 oz pur e alcohol) Comments Unknown Sex and Gender Information Value Date Recorded Sex Assigned at Not on file Legal Sex Female 9:08 PM EST Gender Identity Not on file Sexual Orientation Not on file Obstetrics History Plan of Treatment Health Maintenance Due Date Last Done Comments DTaP,Tdap,and Td Vaccines (1 - Tdap) 1977 Pneumococcal Vaccine: 50+ Ye ars (1 of 1 - PCV) 2008 Zoster Vaccines (1 of 2) 2008 Breast Cancer Screening 01/08/2021 01/08/2019 Colorectal Cancer Screening: Colonoscopy 09/24/2022 Depression Screening 09/24/2022 Hepatitis C Screening 09/24/2022 Osteoporosis Screening (Bone Density Screening) 09/24/2022 Social Influencers of Health Screening 09/24/2022 Falls Risk Assessment 2023 COVID-19 Vaccine (2023-2 5 season) 2024 Influenza Vaccine (Season Ended) 2025 RSV Immunization Adult Patie nts (1 - 1-dose 75+ series) 2033 HIB Vaccines Aged Out No longer eligi ble based on patient's age to complete this topic HPV Vaccines Aged Out No longer eligi ble based on patient's age to complete this topic Hepatitis A Vaccines Aged Out No long er eligible based on patient's age to complete this topic Hepatitis B Vaccines Aged Out No long er eligible based on patient's age to complete this topic IPV Vaccines Aged Out No longer eligi ble based on patient's age to complete this topic MMR Vaccines Aged Out No longer eligi ble based on patient's age to complete this topic Meningococcal ACWY Vaccine Aged Out N o longer eligible based on patient's age to complete this topic Meningococcal B Vaccine Aged Out No l onger eligible based on patient's age to complete this topic RSV Immunization Patients Un allyson 20 months Aged Out No longer eligible b ased on patient's age to complete this topic Varicella Vaccines Aged Out No longer eligible based on patient's age to complete this topic Procedures Procedure Name Priority Date/Time Associated Diagnosis Comments [facility] SCREENING DIGITAL Routine 01/08/2019 4:53 PM EDT Encounter for screening mammogram for malignant neoplasm of breast from Last 3 Months or Most Recently Relevant to Health Maintenance Results * [facility] SCREENING DIGITAL (01/08/2019 4:53 PM EDT) Anatomical Region Laterality Modality Mammography 01/08/2019 11:0 7 AM EDT Narrative 01/08/2019 4:53 PM EDT [facility] Diagnostic Imaging Department [address] [place] [address] Patient: ??SUMMER PEREZ ?/Age/Sex: 1960 - 58 - F Unit#: ??[id number] ? Location/Status: ??SPDIMAM/REG CLI ? Mnemonic/Ordering Site: ??DIGSC/SPMAM Ordering Physician: ??JULISSA RANGEL MD Maximiliano Screening Digital - 01/08/19 - 1139 History: Bilateral breast cancer screening. Technique: Bilateral digital mammography. Conventional CC and MLO projections with tomosynthesis MLO views and computer-aided detection Comparison: [facility] most recently 07/18/2017, 10/14/2015 and 08/28/2012. Findings: Breast tissue is mostly ??fatty replaced (category A density). ??There is no suspicious group of microcalcification, no suspicious mass, architectural distortion or suspicious change in breast tissue density. Impression: ??No evidence of malignancy. BIRADS category 1, negative examination, 3341F 59925, , [address] Note: Patient information entered ??into a reminder system with a target due date for the next mammogram; PQRI II 0729F Dictating Physician: ??BRODY ZHAO MD Electronically Signed by: ??BRODY ZHAO MD Dic Date/Time: ??01/08/191652 Sign date/Time: ??01/08/191652 Procedure Note Brody Zhao MD - 10/04/2022 [facility] Diagnostic Imaging Department [address] [place] [address] Patient: SUMMRE PEREZ /Age/Sex: 1960 - 58 - F Unit#: [id number] Location/Status: SPDIMAM/REG CLI Mnemonic/Ordering Site: [facility] Ordering Physician: JULISSA RANGEL MD Maximiliano Screening Digital - 01/08/19 - 1139 History: Bilateral breast cancer screening. Technique: Bilateral digital mammography. Conventional CC and MLOprojections with tomosynthesis MLO views and computer-aided detection Comparison: [facility] most recently 07/18/2017, 10/14/2015 and 08/28/2012. Findings: Breast tissue is mostly fatty replaced (category A density). There isno suspicious group of microcalcification, no suspicious mass,architectural distortion or suspicious change in breast tissue density. Impression: No evidence of malignancy. BIRADS category 1, negative examination, 3341F [address]496, , [address] Note: Patient information entered into a reminder system with a targetdue date for the next mammogram; PQRI II 7019F Dictating Physician: BRODY ZHAO MD Electronically Signed by: BRODY ZHAO MD Dic Date/Time: 01/08/191652 Sign date/Time: 01/08/191652 us Julissa Rangel MD IMG BI PROCEDURES Final Result from Last 3 Months or Most Recently Relevant to Health Maintenance Care Teams Lay Ups Assembler Relationship Specialty Start Date End Date Julissa Rangel MD [address] [place] [address] [place] [address] PCP - General Internal Medicine 08/23/17
== END 2025-01-30 11:08 | disposition home or self-care (01) ==
LOC: HO.HPS 10:36
PROVIDERS: PCP Internal Medicine; Visit Provider Hospitalist
DX: R91.8 Other nonspecific abnormal finding of lung field (principal); J96.11 Chronic respiratory failure with hypoxia; J41.8 Mixed simple and mucopurulent chronic bronchitis; M79.89 Other specified soft tissue disorders
CPT/HCPCS: 99214; G2211

== ENCOUNTER → 2025-01-30 10:36 | Outpatient (BNVA) | payer MEDICARE, MEDICAID, SELFPAY | PROVIDERS: PCP Internal Medicine; Visit Provider Hospitalist | DX: R91.8 Other nonspecific abnormal finding of lung field (principal); J96.11 Chronic respiratory failure with hypoxia; J41.8 Mixed simple and mucopurulent chronic bronchitis; M79.89 Other specified soft tissue disorders | CPT/HCPCS: 99212 ==

== ENCOUNTER 2025-03-04 11:59 | Outpatient (REF) | payer MEDICARE, MEDICAID, SELFPAY ==
--- NOTE | ~2025-03-04 | CT_ITS ---
CLINICAL HISTORY: Z87.891 - Personal history of nicotine dependence CT lung cancer screening (LDCT) Comparison: CT/SR - CT CHEST WO CON - 04/26/22 10:[address]/REG - CT LUNG SCREENING - 02/04/21 09:40 EDT Technique: Axial CT images of the chest using low-dose technique. Referring provider counseled the patient on shared decision-making for LDCT screening. Additional counseling was provided on smoking cessation. Effective radiation dose total: DLP 65.7 mGycm, CTDIvol 2.1 mGy. Findings: Lung: Moderate emphysema. Calcified granulomas. No suspicious pulmonary nodule. Coronary artery calcifications: None Limited upper abdomen: Moderate size of the hiatal hernia. Other: None Impression: LungRADS 2 - Benign Appearance: Continue annual screening with low dose Chest CT in 12 months. ##L2## Category 1: Normal; continue annual screening Category 2: Benign appearance or behavior, continue annual screening Category 3: Probably benign, [address] recommended Category 4A: Suspicious, [address] recommended; may consider PET/CT Category 4B: Suspicious, Additional diagnostics and/or tissue sampling recommended Category 4X: Suspicious, Additional diagnostics and/or tissue sampling recommended Category 0: Recalls (incomplete screen due to Incomplete coverage, Noise, Respiratory motion, Expiration, Obscured by acute abnormality) This document has been electronically signed by: Lucy Solares MD on 03/04/2025 15:29:53
--- NOTE | 2025-03-04 12:27 | CA_ITS ---
Transthoracic Echocardiogram Patient (Last, First, Middle): Summer Perez, Gender: Female Date of : 1960 Age: 64 Procedure Date: 03/04/2025 Procedure Type: Transthoracic Echocardiogram Location: OP Height: 160.02 cm Weight: 124.74 kg BSA: 2.21 m2 Heart Rate: 78 bpm BP: 140 / 65 mmHg Retouching Operator: SB/RC Referring MD: Jason Cm MD Brush Material Preparer: Everton Cheatham MD Symptoms: I27.20 - Pulmonary hypertension, unspecified Study Quality: Adequate w contrast ECG Rhythm: Sinus Conclusions: - 1. Hyperdynamic LV EF of greater than 70% with suggestive of elevated filling pressures 2. Calcific aortic and mitral valve changes noted with normal cardiac valvular Dopplers 3. Normal measured RV systolic pressure 4. No gross pericardial effusion Findings Procedure Information Contrast agent, definity, is being given per protocol without apparent complications. The quality of the study was technically difficult. The study quality is limited by patients body habitus and lung artifact. Left Ventricle Normal left ventricular cavity size. There is normal left ventricular wall thickness. The left ventricular systolic function is hyperdynamic. The visually estimated ejection fraction is >70%. Spectral Doppler is indicative of an impaired relaxation filling pattern. Elevated filling pressures. E/E prime ratio is >15, consistent with elevated filling pressures. Right Ventricle The right ventricle was not well visualized. There is normal right ventricular systolic function. Atria The left atrium is normal in size. Interatrial shunt cannot be excluded. The right atrium was not well visualized. Aortic Valve The aortic valve was not well visualized. There is moderate calcification of the aortic valve. There is no aortic valve stenosis. There is no aortic valve regurgitation. Mitral Valve The mitral valve was not well visualized. There is mild anterior mitral leaflet thickening. There is mild mitral annular calcification. There is trace mitral valve regurgitation. There is no mitral valve stenosis. Pulmonic Valve The pulmonic valve was not well visualized. Tricuspid Valve Likely normal tricuspid valve structure and function. There is mild tricuspid valve regurgitation. The right ventricular systolic pressure is normal. The right ventricular systolic pressure is 33 mmHg. Normal right atrial pressure. There is no evidence of pulmonary hypertension. Great Vessels The aorta was not well visualized. The pulmonary artery was not well visualized. Venous The inferior vena cava is normal in size and collapses greater than 50% with inspiration. Pericardium/Pleural There is no evidence of pericardial effusion. Prior Study Comparison no previous study in the last 5 years for comparison Measurements 2D Linear Measurements IVSd: 1.04 0.6-0.9/0.6-1.0 cm LVIDd: 4.13 3.9-5.3/4.2-5.9 cm LVIDd Index: 1.87 2.4-3.2/2.2-3.1 cm/m2 LVIDs: 2.90 2.0-3.6 cm LVPWd: 0.86 0.7-1.1 cm LV Mass: 154.20 67-162/88-224 g LV Mass Index: 69.77 43-95/49-115 g/m2 LVOT Diam: 2.10 3.0+(-)1.3 cm 2D Systolic Function EF 4C: 75.00 >55% EF 2C: 72.00 >55% EF BiP: 72.80 >55% Mitral Valve MV Pk E: 1.16 MV PK A: 1.40 MV Decel Time: 203.00 E/A: 0.80 E'Lateral: 6.96 E'Medial: 6.85 E/E' Med: 16.90 E/E' Lat: 16.70 PHT: 60.00 MVA PHT: 3.67 Decel Reeves: 5.70 Aortic Valve AoV Pk Severino: 2.33 AoV Mn Severino: 1.38 AoV VTI: 0.43 AoV Pk Grad: 22.00 Aov Mn Grad: 9.00 BENJAMIN Cont.VTI: 2.19 LVOT LVOT Pk Severino: 1.40 LVOT Mn Severino: 0.89 LVOT VTI: 0.27 LVOT Pk Grad: 8.00 LVOT Mn Grad: 4.00 LVOT Diam: 2.10 LVOT Area: 3.46 Diastolic Function MV Pk E: 1.16 MV Pk A: 1.40 E/A: 0.80 E'Medial: 6.85 E/E' Med: 16.90 E' Laterial: 6.96 E/E' Lat: 16.70 Right Ventricle TAPSE (mm): 25.70 TVS' Severino: 18.20 Tricuspid Valve TR Pk Severino: 2.48 TR Pk Grad: 25.00 RA Press: 8.00 RVSP: 33.00 Great Vessels Aorta Sinus of Valsalva: 2.80 2.0-3.5 cm Ao Asc: 2.80 2.1-3.4 cm Pulmonary Valve PV Pk Severino: 0.93 Peak PV Grad: 3.00 Updated in Other Vendor System with Status of Final Everton Cheatham MD electronically signed on 03/05/2025 2:35:54 PM with status of Final
--- OUTSIDE RECORDS SUMMARY | 2025-03-04 13:03 | XMS_ITS | Clinical Summary ---
Author Organization [facility] Address [address] [place] [address] Care Team Providers Care Edger Hand Name Role Phone Julissa Rangel MD Primary Care Provider [phone] Surgical History Surgery Date Site/Laterality Comments KNEE [...] Procedure Name Priority Date/Time Associated Diagnosis Comments [facility] SCREENING DIGITAL Routine 01/08/2019 4:53 PM EDT Encounter for screening mammogram for malignant neoplasm of breast from Last 3 Months or Most Recently Relevant to Health Maintenance Results * [facility] SCREENING DIGITAL (01/08/2019 4:53 PM EDT) Anatomical Region Laterality Modality Mammography 01/08/2019 11:0 7 AM EDT Narrative 01/08/2019 4:53 PM EDT [facility] Diagnostic Imaging Department [address] [place] [address] Patient: ??SUMMER PEREZ ?/Age/Sex: 1960 - 58 - F Unit#: ??[id number] ? Location/Status: ??SPDIMAM/REG CLI ? Mnemonic/Ordering Site: ??DIGSC/SPMAM Ordering Physician: ??JULISSA RANGEL MD Maximiliano Screening Digital - 01/08/19 - 1139 History: Bilateral breast cancer screening. Technique: Bilateral digital mammography. Conventional CC and MLO projections with tomosynthesis MLO views and computer-aided detection Comparison: [facility] most recently 07/18/2017, 10/14/2015 and 08/28/2012. Findings: Breast tissue is mostly ??fatty replaced (category A density). ??There is no suspicious group of microcalcification, no suspicious mass, architectural distortion or suspicious change in breast tissue density. Impression: ??No evidence of malignancy. BIRADS category 1, negative examination, 3341F 19068, , [address]159 Note: Patient information entered ??into a reminder system with a target due date for the next mammogram; PQRI II 8539F Dictating Physician: ??BRODY ZHAO MD Electronically Signed by: ??BRODY ZHAO MD Dic Date/Time: ??01/08/191652 Sign date/Time: ??01/08/191652 Procedure Note Brody Zhao MD - 10/04/2022 [facility] Diagnostic Imaging Department [address] [place] [address] Patient: SUMMER PEREZ /Age/Sex: 1960 - 58 - F Unit#: [id number] Location/Status: SPDIMAM/REG CLI Mnemonic/Ordering Site: [facility] Ordering Physician: JULISSA RANGEL MD Maximiliano Screening Digital - 01/08/19 - 1139 History: Bilateral breast cancer screening. Technique: Bilateral digital mammography. Conventional CC and MLOprojections with tomosynthesis MLO views and computer-aided detection Comparison: [facility] most recently 07/18/2017, 10/14/2015 and 08/28/2012. Findings: Breast tissue is mostly fatty replaced (category A density). There isno suspicious group of microcalcification, no suspicious mass,architectural distortion or suspicious change in breast tissue density. Impression: No evidence of malignancy. BIRADS category 1, negative examination, 3341F 83990, , [address] Note: Patient information entered into a reminder system with a targetdue date for the next mammogram; PQRI II 7083F Dictating Physician: BRODY ZHAO MD Electronically Signed by: BRODY ZHAO MD Dic Date/Time: 01/08/191652 Sign date/Time: 01/08/191652 us Julissa Rangel MD IMG BI PROCEDURES Final Result from Last 3 Months or Most Recently Relevant to Health Maintenance Care Teams Edger Hand Relationship Specialty Start Date End Date Julissa Rangel MD [address] [place] [address] [place] [address] PCP - General Internal Medicine 08/23/17
--- OUTSIDE RECORDS SUMMARY | 2025-03-04 13:04 | XMS_ITS | Patient Health Record ---
Author Organization [facility] Address [address] [place] [address] Care Team Providers Care Foreign Languages Department Chair Name Role Phone Juan Carlos CHUN, Jose G Primary Care Provider Elder Blanchard [phone] Allergies Allergen (clinical drug ingredient) Drug/Non Drug [...] Problem Status W/U Status Risk Notes Problem 598657115 Encounter for screening for malignant neoplasm of colon (Z12.11) Active confirmed Problem 719207170 Change in bowel habits (R19.4) Active confirmed Problem 515051635 Hx of adenomatous colonic polyps (Z86.010) Active confirmed Problem 97397925 Diarrhea, unspecified type (R19.7) Active confirmed Plan Of Treatment Pending Test Test Name Order Date CELIAC PANEL #10 04/28/2021 Future Test Test Name Order Date COLONOSCOPY 04/28/2021 Insurance Providers Payer Name Payer Address Payer Phone Subscriber Number Group Number Insured Name Patient Relationship to Insured Coverage Start Date Coverage End Date [facility] [address] [address] [place], [place] [id number] CHERY COVARRUBIAS Self - patient is the insured MEDICAID OF [facility] [address] [place] [address] [id number] CHERY COVARRUBIAS Self - patient is the insured Medical (General) History Medical History History ICD Code GERD--told of a HH on UGI--never had an EGD HTN Denies SC,DM,CVA,renal disease LE edema Iron deficiency anemia in the past--norm al CBC in 01/2021 COPD--wears oxygen for exertion and slee p Colonoscopy [facility] with Dr. Wilson in 2014 with removal of a polyp Surgical History Surgery Date(Month/Year) Right knee arthroscopy
== END 2025-03-04 12:00 | disposition home or self-care (01) ==
LOC: HO.CT 11:59
PROVIDERS: PCP Internal Medicine; Referring Provider Physician Assistant Medical; Visit Provider Hospitalist
DX: Z12.2 Encounter for screening for malignant neoplasm of respiratory organs (principal); Z87.891 Personal history of nicotine dependence; I27.20 Pulmonary hypertension, unspecified
CPT/HCPCS: 71271; 93306; Q9957

== ENCOUNTER → 2025-03-04 12:01 | Outpatient (BNV) | payer MEDICARE, MEDICAID, SELFPAY | PROVIDERS: PCP Internal Medicine; Referring Provider Physician Assistant Medical; Visit Provider Nuclear Medicine | DX: Z87.891 Personal history of nicotine dependence (principal) | CPT/HCPCS: 71271 ==

== ENCOUNTER → 2025-03-04 12:27 | Outpatient (BNV) | payer MEDICARE, MEDICAID, SELFPAY | PROVIDERS: PCP Internal Medicine; Referring Provider Physician Assistant Medical; Visit Provider Internal Medicine Cardiovascular Disease | DX: I35.8 Other nonrheumatic aortic valve disorders (principal); I34.81 Nonrheumatic mitral (valve) annulus calcification; I36.1 Nonrheumatic tricuspid (valve) insufficiency | CPT/HCPCS: 93306 ==

== ENCOUNTER 2025-07-22 08:48 | Outpatient (AMB) | payer MEDICARE, MEDICAID, SELFPAY ==
--- NOTE | 2025-07-22 08:54 | MHC.AMNUTRGE ---
VS Expanded 07/22/25 08:56 08/03/25 09:31 Height 5 ft 2 in 5 ft 2 in Weight 266 lb 12.149 oz 267 lb BMI 48.8 48.8 Intake Visit Reasons: Pre-diabetes Allergies lactose Allergy (Mild, Verified 01/30/25 10:47) Diarrhea latex Allergy (Mild, Verified 01/30/25 10:47) Rash Seasonal Allergies Allergy (Verified 01/30/25 10:46) Unknown Medication List - Last Reconciled 08/03/[address], JARONN acetaminophen (Tylenol Extra Strength) 1,000 mg PO Q6H PRN albuterol sulfate 2.5 mg (3 mL) inhalation Q8H PRN albuterol sulfate 90 mcg/actuation (Ventolin HFA) 2 puffs PO Q6H PRN calcium carbonate-vitamin D3 600 mg-5 mcg (200 unit) 1 tab PO DAILY furosemide 20 mg PO QAM losartan 25 mg PO DAILY metformin 500 mg PO BIDWMEAL metoprolol succinate ER 25 mg PO BID nebulizers As directed omeprazole 20 mg PO QPM rosuvastatin 20 mg PO DAILY umeclidinium-vilanterol 62.5-25 mcg/actuation (Anoro Ellipta) 1 inh PO DAILY Nutrition Presentation Details: Pt presents for MNT for PreDM FBG less than 100 mgdl 500 metformin twice/d, reports doing well with it Typical meal intake 4:30 am coffee equal lactose free milk 2 toast , margarine 1130 salad with eggs/cheese glass diet [place] 2 pm p.b sand or mayank crackers, apple 5pm: potato/veg/meat, water , or diet [place] snacks: crackers, pastries, fruit UTL-Dpfanbv-Ar.Jeor Equation Height: 5 ft 2 in Weight: 267 lb Resting Metabolic Rate: 1703.49 Calculated Activity Level: Sedentary Calories Needed to Maintain Weight: 2044.19 Diagnosis Nutrition problem #1: food nutri know defi As related to (etiology) #1: diagnosis As evidenced by (sign/symptom) #1: knowledge deficit of diet [facility] Medical History (Updated 07/22/25 @ 09:[address], LDN) Personal history of nicotine dependence Chest discomfort Limb swelling Pulmonary nodules Chronic respiratory failure COPD (chronic obstructive pulmonary disease) Social History (Updated 04/04/21 @ 09:04 by FAITH Loyd) Patient Tobacco Use Status: Former Tobacco user Tobacco use type: Cigarette Years Smoked: 45 years Assessment & Plan Assessment & Plan (1) Pre-diabetes: Code(s): R73.03 - Prediabetes Category: Medical Plan: current wt: 121 kg (08/08 ) est kcal needs as per MSJ: 2000-500 = 1500 est protein needs as per 1 g/kg BW: 120 est fluid needs as per 30 ml/kg BW: 3600 Recommended fiber > 12 g /day and gradually increase up to 25-28 g /day or as tolerated Nutrition topics discussed : Reviewed (R), Pt verbalized understanding (V) , not applicable (N/A) R, : Healthy Plate Method Concept: R, : Carbohydrates: food sources of carbohydrates, relationship of carbohydrates to blood glucose, fatty liver GI health. Recommended total amount of carbohydrates per meals and snack. Differences between simple carbohydrates and complex carbohydrates R, : Lean protein foods including vegan , vegetarian sources of protein. Benefits of protein (including but not limited to healing, nutritional value , benefits in weight loss, glucose control R, V, N/A: Fats : Source of fats, benefits of fats. Difference between saturated and unsaturated fats. Saturated fats and its contribution to inflammation R, V, N/A: Fiber: food sources and role of fiber in the diet (including but not limited to its role as a prebiotic, benefits in constipation, role in IBS , role in glucose control and cholesterol level) R, V, N/A: Hydration: role of hydration and prevention of dehydration or over hydration. Foods and water content. R, V, N/A: Vitamins and Minerals in foods and supplements R, V, N/A: Interpreting food labels, including serving size, macronutrients, vitamins, minerals, allergens, ingredient list , % daily value Patient Instructions: follow healthy plate method at dinner HAve a yogurt or apple with peanut butter as bedtime snack Continue working on choosing low sugar foods Coding Level of Care Code Nutr Indiv Intake (47056) Diagnoses Pre-diabetes R73.03 Time Spent (min) 30
[2025-07-22 08:56] VITALS: BMI 48.8
[2025-08-03 09:31] VITALS: BMI 48.8
== END 2025-07-22 09:46 | disposition home or self-care (01) ==
LOC: HO.ENCR 08:48
PROVIDERS: PCP Internal Medicine; Visit Provider Dietitian, Registered
DX: R73.03 Prediabetes (principal)

== ENCOUNTER → 2025-07-22 08:48 | Outpatient (BNVA) | payer MEDICARE, MEDICAID, SELFPAY | PROVIDERS: PCP Internal Medicine; Visit Provider Dietitian, Registered | DX: R73.03 Prediabetes (principal); Z71.3 Dietary counseling and surveillance | CPT/HCPCS: 97802 ==